=== PATIENT | female | born 1995 | race African-American/Black ===

== ENCOUNTER 2020-10-18 12:09 | Emergency (ER) | payer BC, SELFPAY ==
--- NOTE | 2020-10-18 12:31 | ED_ITS ---
HPI - Female Genitourinary General Chief complaint: Urogenital-Female Stated complaint: blood in urine Time Seen by Provider: 10/18/20 12:31 History of Present Illness HPI Narrative: Patient complains of some blood in the urine as well as several days of burning with urination and frequency, no abdominal pain or back pain no fever no chills no nausea no vomiting Related Data Previous Rx's Medication Instructions Recorded nitrofurantoin monohyd/m-cryst 100 mg PO BID 5 Days #10 cap 10/18/20 [Macrobid] Allergies Allergy/AdvReac Type Severity Reaction Status Date / Time No Known Allergies Allergy Verified 10/18/20 12:36 Review of Systems Review of Systems: Positive for blood in the urine and dysuria There is no fever no chills no weakness no confusion no shortness breath no chest pain no abdominal pain no back pain no nausea no vomiting no diarrhea no leg swelling no rash [facility] Past Medical History Attestation statement: The following information was validated with the patient. [facility] Narrative: No relevant medical history Surgical History (Updated 10/18/20 @ 12:35 by Janine Reyes RN) Previous back surgery Social History Social History Advance Directives: No Advance Directives Information Provided: Yes Physical Exam Vital Signs: Vital Signs: Last Vital Signs Temp 97.6 F 10/18/20 12:33 Pulse 63 10/18/20 12:33 Resp 17 10/18/20 12:33 BP 114/68 10/18/20 12:33 Pulse Ox 100 10/18/20 12:33 Body Mass Index 24.3 Patient is A&O x3, comfortable, no acute distress Pharynx is clear, moist mucous membranes Neck is supple Respiratory no distress Abdomen soft nontender Back no CVA tenderness Extremities no edema Skin no rash Course Course Course Narrative: Patient with symptoms of UTI with lab confirmation is treated MDM - Female Genitourinary Lab Data Attestation: I reviewed the patient's lab results. Labs: Lab Results 10/18/20 10/18/20 Range/Units 13:08 13:08 Urine Color YELLOW Urine Appearance CLOUDY Urine pH 7.0 (5.0-8.0) Ur Specific Banks 1.015 (1.005-1.025) Urine Protein NEG (NEG-TRACE) MG/DL Urine Glucose (UA) NEG (NEG) MG/DL Urine Ketones NEG (NEG) MG/DL Urine Blood 3+ H (NEG) Urine Nitrite NEG (NEG) Ur Leukocyte Esterase 2+ H (NEG) Urine RBC 10-14 H (0) /HPF Urine WBC 50-75 H (0-4) /HPF Ur Squamous Epith Cells 1+ /LPF Urine Bacteria TRACE /LPF Urine Test NEGATIVE (NEGATIVE) Discharge Plan Discharge Clinical Impression: Urinary tract infection Patient Disposition: Home, Self-Care Additional Instructions: Urine test confirmed urinary tract infection Take antibiotic as prescribed Return to ER any time any worse condition or any concerns Prescriptions: New nitrofurantoin monohyd/m-cryst [Macrobid] 100 mg capsule 100 mg PO BID 5 Days Qty: 10 RF: 0 Stand Alone Forms: Work/School Release Interventions: ED Discharge Assessment Last Done: 10/18/20 14:28 Discharge Date/Time: 10/18/20 14:29
[2020-10-18 12:33] VITALS: BP 114/68; PULSE 63; RESP 17; TEMP 36.4; O2SAT 100; BMI 24.3
[2020-10-18 13:25] LABS: Appearance Urine CLOUDY; Color Urine YELLOW; Glucose Urine UA NEG (NEG); Leukocyte Esterase Urine 2+ (NEG); Nitrite Urine NEG (NEG); Specific Gravity - Urine 1.015 (1.005-1.025); Urine Blood 3+ (NEG); Urine Ketones NEG (NEG); Urine Protein NEG (NEG-TRACE)
[2020-10-18 13:27] LABS: UPreg QC Valid YES; Urine Pregnancy NEGATIVE (NEGATIVE)
[2020-10-18 13:32] LABS: Bacteria Urine TRACE /LPF; Squamous Epithelial Cell Urine 1+ /LPF; WBC Urine 50-75 /HPF (0-4)
[2020-10-18] MEDS: Nitrofurantoin Monohyd/M-Cryst 100 MG CAPSULE PO (14:22)
== END 2020-10-18 14:29 | disposition home or self-care (01) ==
PROVIDERS: Physician Assistant Medical; Emergency Provider Internal Medicine
DX: N39.0 Urinary tract infection, site not specified (principal); R31.9 Hematuria, unspecified
CPT/HCPCS: 81001; 81025; 87086; 99283

== ENCOUNTER 2022-09-01 13:08 | Emergency (ER) | payer BC, SELFPAY ==
[2022-09-01 13:39] VITALS: BP 116/55; PULSE 74; RESP 18; TEMP 36.4; O2SAT 98; BMI 24.3
[2022-09-01 14:35] LABS: MANUAL DIFF FLAG NO
[2022-09-01 14:42] LABS: Basophils Percent Auto 0.6 % (0-2); Eosinophils Absolute Auto 0.1 X10*3/uL (0.0-0.4); Eosinophils Percent Auto 1.9 % (0-4); Hematocrit 40.5 % (37.0-47.0); Hemoglobin 13.4 g/dl (12.0-16.0); Imm Gran Abs Auto 0.01 X10*3/uL (0.00-0.03); Imm Gran Pct Auto 0.2 % (0.0-0.4); Lymphocytes Absolute Auto 1.2 X10*3/uL (1.2-4.9); Lymphocytes Percent Auto 25.6 % (20-40); Mean Corpuscular HGB Conc 33.1 g/dl (31.0-35.0); Mean Corpuscular Hemoglobin 28.5 pg (27.0-33.0); Mean Corpuscular Volume 86.2 fL (80.0-98.0); Mean Platelet Volume 10.2 fL (9.4-12.3); Monocytes Absolute Auto 0.6 X10*3/uL (0.1-1.2); Monocytes Percent Auto 12.6 % (2-11); Neutrophils Absolute Auto 2.9 x10*3/uL (2.0-8.3); Neutrophils Percent Auto 59.1 % (45-73); Platelet Count 238 X10*3/uL (160-400); Red Cell Distribution Width 13.9 % (11.0-16.0); White Blood Count 4.9 X10*3/uL (4.8-10.8)
[2022-09-01 14:48] LABS: Anion Gap 18 (12-20); Blood Urea Nitrogen 8 mg/dL (9-16); Calcium 9.9 mg/dL (8.4-10.2); Carbon Dioxide 23 mmol/L (22-29); Chloride 104 mmol/L (96-108); Creatinine Clr Calc Pharmacy 102.7; Estimated Glomerular Filt Rate > 60; Glucose Random 69 mg/dL (60-115); Potassium 4.1 mmol/L (3.3-5.1); Sodium 141 mmol/L (135-145)
[2022-09-01 14:56] LABS: Appearance Urine Cloudy; Color Urine Orange; Glucose Urine UA Negative (Negative); Leukocyte Esterase Urine Moderate (2+) (Negative); Nitrite Urine Positive (Negative); Specific Gravity - Urine 1.015 (1.005-1.025); UMIC TRIGGER UACC YES; Urine Blood Negative (Negative); Urine Ketones Negative (Negative); Urine Protein Trace mg/dL (Neg-Trace)
[2022-09-01 14:57] LABS: Bacteria Urine Trace (None Seen); Hyaline Casts Urine 0-2 /LPF (0-2); RBC Urine >20 /HPF (0-2); UACC Culture Trigger YES; WBC Urine 0-5 /HPF (0-5)
[2022-09-01] MEDS: Acetaminophen 325 MG TABLET 650 MG PO (17:09)
--- OUTSIDE RECORDS SUMMARY | 2022-09-01 19:11 | XMS_ITS | Continuity of Care Document ---
:1995 Author Organization [facility] Address [address] [id number]- [place] [facility] [place]/04/21 [facility] [address] [address]
--- OUTSIDE RECORDS SUMMARY | 2022-09-01 19:11 | XMS_ITS | Continuity of Care Document ---
:1995 Author Organization [facility] Address [address] [place] [id number]- Care Team Providers Name Role Phone Not on Staff, PCP Primary Care Physician Unavailable Encounter [facility] Date(s): 04/22/21 - 07/05/[address] [address]- Attending Physician: Not on Staff, Attending MD Referring Physician: Azra Raymond CNM
--- OUTSIDE RECORDS SUMMARY | 2022-09-01 19:11 | XMS_ITS | Continuity of Care Document ---
:1995 Author Organization [facility] Address [address] [place] [id number]- Care Team Providers Name Role Phone Not on Staff, PCP Primary Care Physician Unavailable Encounter [facility] Date(s): 06/05/21 - 07/05/[address] [address]- Attending Physician: Miracle Youngblood Admitting Physician: Miracle Youngblood Referring Physician: Miracle Youngblood
--- OUTSIDE RECORDS SUMMARY | 2022-09-01 19:11 | XMS_ITS | Continuity of Care Document ---
:1995 Author Organization [facility] Address [address] [address]- Encounter [facility] Date(s): 10/16/20 - 11/15/20 [facility] [address] [place] [id number]
== END 2022-09-01 19:11 | disposition left against medical advice (07) ==
PROVIDERS: Emergency Provider Emergency Medicine
DX: N23 Unspecified renal colic (principal); Z79.899 Other long term (current) drug therapy
CPT/HCPCS: 36415; 80048; 81001; 85025; 87086; 87088; 87186; 99283

== ENCOUNTER 2022-11-04 14:43 | Outpatient (REF) | payer BC, SELFPAY ==
[2022-11-04 15:29] LABS: Influenza A PCR POSITIVE (Negative); Influenza B PCR NEGATIVE (Negative); Resp Syncy Virus RNA Qual PCR NEGATIVE (Negative); SARS COV2 PCR INHOUSE NEGATIVE (Negative)
== END 2022-11-04 14:44 | disposition home or self-care (01) ==
LOC: HO.LNP 14:43
PROVIDERS: Visit Provider Nurse Practitioner Family
DX: R09.89 Other specified symptoms and signs involving the circulatory and respiratory systems (principal); Z20.822 Contact with and (suspected) exposure to COVID-19
CPT/HCPCS: 0241U